=== PATIENT | female | born 1960 | race Caucasian/White ===

== ENCOUNTER 2024-08-10 07:04 | Day surgery (SDC) | payer OTHER ==
[~2024-08-10] VITALS: Ht 157.5 cm; Wt 68.2 kg
[~2024-08-10 07:04] MED LIST: ALBU18HF12 IH; ALPR-707 PO; BUPR600F2 BU; DOCU100C33 PO; DULO-114 PO; FAMO40TA7 PO; HYDR10TA31 PO; IBUP-2077 PO; LEVO137T2 PO; LISI-894 PO; METH150T PO; MONT-40 PO; NALO25TA4 PO; NALO8SPR NASAL; OXYC10TA48 PO; QUET300T19 PO; QUET50TA24 PO; SEMA0.5P SQ; SENN-374 PO; SIMV-260 PO; SODIUM CHLORIDE 0.9% 1,000 ML ONE; TIOT4MIS3 IH; TOPI-258 PO
[2024-08-10] MEDS: SODIUM CHLORIDE 0.9% 1,000 ML IV ONE (08:02)
[2024-08-10] MEDS ORDERED: FentaNYL CITRATE PF 100 MCG/2 ML VIAL ONE (08:29)
[2024-08-10] MEDS ORDERED: MIDAZOLAM HCL 2 MG/2 ML VIAL ONE (08:29)
[2024-08-10] MEDS ORDERED: MethylPREDNISolone SOD SUCC 125 MG/2 ML VIAL ONE (08:56)
[2024-08-10 09:43] VITALS: PULSE 91; RESP 20; O2SAT 99
[2024-08-10] MEDS: MethylPREDNISolone SOD SUCC 125 MG/2 ML VIAL IVP ONE (10:44)
[2024-08-10] MEDS ORDERED: LIDOCAINE 4% 50 ML SOLUTION ONE (12:00)
[2024-08-10] MEDS ORDERED: ALBUTEROL SULFATE 2.5 MG/0.5 ML NEB SOLUTION NEB ONE (12:00)
[2024-08-10] MEDS ORDERED: LIDOCAINE 2% 11 ML JELLY ONE (12:00)
[2024-08-10] MEDS ORDERED: BENZOCAINE 20% 50 MCG/SPRAY 57 GM ONE (12:00)
== END 2024-08-10 11:40 | disposition home or self-care (01) ==
LOC: SURGERY 07:04
PROVIDERS: ATTEND Internal Medicine Critical Care Medicine
DX: R05.3 Chronic cough (principal); R04.2 Hemoptysis; J38.4 Edema of larynx; E70.0 Classical phenylketonuria; I50.9 Heart failure, unspecified; I11.0 Hypertensive heart disease with heart failure; B37.0 Candidal stomatitis; Z91.041 Radiographic dye allergy status; Z87.891 Personal history of nicotine dependence; Z87.01 Personal history of pneumonia (recurrent); Z98.890 Other specified postprocedural states; Z79.899 Other long term (current) drug therapy
CPT/HCPCS: 31623; 31624; 71045; 87015; 87070; 87101; 87186; 87206; 87220; 88108; 93005; 94640; J2250; J2919; J3010; J7030; J7613; Z7610